=== PATIENT | male | born 1995 | race American Indian/Alaskan Native ===

== ENCOUNTER 2017-03-27 18:07 | Emergency (ER) | payer OTHER ==
[2017-03-27 18:26] VITALS: TEMP 98
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
[2017-03-27 19:55] VITALS: BP 125/84; RESP 18; O2SAT 100
[2017-03-27 19:59] VITALS: PULSE 78
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
== END 2017-03-27 19:59 | disposition home or self-care (01) ==
LOC: ED 18:07
DX: M54.5 Low back pain (principal); V53.6XXA Passenger in pick-up truck or van injured in collision with car, pick-up truck or van in traffic accident, initial encounter; Y92.410 Unspecified street and highway as the place of occurrence of the external cause